=== PATIENT | male | born 1990 | race Caucasian/White ===

== ENCOUNTER 2017-08-10 03:20 | Emergency (ER) | payer BC ==
[~2017-08-10] VITALS: Ht 198.1 cm; Wt 141.7 kg
[~2017-08-10 03:20] MED LIST: LEVO5TAB2 PO
[2017-08-10 03:26] VITALS: TEMP 36.6; Ht 198.1 cm; Wt 141.7 kg
[2017-08-10] MEDS ORDERED: LORAZEPAM 1 MG TAB SL STA (04:13)
--- NOTE | 2017-08-10 04:20 | EMERGENCY ROOM VISIT NOTE ---
History Report prepared by Trixie: Tete Seay Under the Supervision of: Dr. Michelle Padilla D.O. First contact with patient: 03:37 Chief Complaint: ANXIETY Stated Complaint: COLD FEET History of Present Illness The patient is a 27 year old male who presents to the Emergency Room with complaints of an episode of an anxiety attack. The patient states "I thought i was gonna be okay but I'm not". 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 The patient states he felt "off" while he was at work. When the patient got home from work tonight, he states he smoked some marijuana. He states that after smoking weed he felt "wrong". Per roommates, the patient seemed confused and was not acting like himself when he got home from work. They report the patient was outside in only his socks and pajamas yelling and knocking on people's doors. The patient is aware that he was walking outside and states he was doing it because he thought it would make him feel "better" The patient states he feels "alone". The patient is unsure of any history of anxiety or depression. The patient's roommates state they haven't noticed any changes in the patient personality or attitude over the past couple weeks. The patient has a history of abusing drugs 5-6 years ago. Per roommates, the patient smoked this same marijuana before. The patient does not take prescription medications for anything. He notes sweats but denies any headache. He states he has been staying up late over the past week because . "it felt right" He denies any recent alcohol use or increased stress at work. Source of History: patient, other (roomates) Position: other (generalized) Quality: other (anxiety ) Associated Symptoms: + diaphoresis, No headache Review of Systems See HPI for pertinent positives & negatives. A total of 10 systems reviewed and were otherwise negative. Past Medical & Surgical Medical Problems: (1) Pollen allergies Family History Patient reports no known family medical history. Social History Smoking Status: Never Smoker Marital Status: single Occupation Status: employed Current/Historical Medications Scheduled PRN Levocetirizine Dihydrochloride (Xyzal), 5 MG PO DAILY PRN for Allergy Symptoms Allergies Coded Allergies: No Known Allergies (Unverified , 04/30/12) Physical Exam Vital Signs Date Time Temp Pulse Resp B/P (MAP) Pulse Ox O2 Delivery O2 Flow Rate FiO2 08/10/17 05:48 75 16 145/73 97 Room Air 08/10/17 03:47 58 08/10/17 03:26 36.6 78 20 157/107 100 Room Air Physical Exam General: Anxious, tachypneic, crying and hyperventilating HEENT: Head - normocephalic and atraumatic Pupils are equal, round, and reactive to light. Extraocular eye muscles are intact, and sclera are anicteric. Nose - moist nasal mucosa without discharge. Mouth - moist buccal mucosa. Oropharynx is nonerythematous and there is no tonsillar exudate or edema noted. Neck: Supple; no JVD, nuchal rigidity, cervical lymphadenopathy. Heart: Tachycardic. There is a normal S1 and S2 with no murmurs, clicks, or gallops appreciated. Lungs: Clear to auscultation bilaterally with no wheezes, rales, or rhonchi. Abdomen: Soft, completely nontender, nondistended, with good bowel sounds. There are no palpable pulsatile masses or hepatosplenomegaly. There is no guarding, rigidity, or rebound noted. Extremities: No evidence of cyanosis, clubbing, or edema. There are easily palpable peripheral pulses. Skin: Hot and diaphoretic with good turgor and no rashes. Psych: The patient is tearful and appears quite anxious on exam. He admits to possibly having some suicidal thoughts earlier this evening. Medical Decision & Procedures Laboratory Results 08/10/17 05:05 08/10/17 05:05 Test 08/10/17 03:34 08/10/17 05:05 08/10/17 05:11 Urine Color DK YELLOW Urine Appearance CLEAR (CLEAR) Urine pH 5.5 (4.5-7.5) Urine Specific [place] 1.028 (1.000-1.030) Urine Protein NEG (NEG) Urine Glucose (UA) NEG (NEG) Urine Ketones 1+ (NEG) Urine Occult Blood NEG (NEG) Urine Nitrite NEG (NEG) Urine Bilirubin NEG (NEG) Urine Urobilinogen NEG (NEG) Urine Leukocyte Esterase NEG (NEG) Urine Opiates Screen NEG (NEG) Urine Methadone, Qualitative NEG (NEG) Urine Barbiturates NEG (NEG) Urine Phencyclidine (PCP) Level NEG (NEG) Ur Amphetamine/Methamphetamine NEG (NEG) MDMA (Ecstasy) Screen NEG (NEG) Urine Benzodiazepines Screen NEG (NEG) Urine Cocaine Metabolite NEG (NEG) Urine Marijuana (THC) POS (NEG) Red Blood Count 4.97 M/uL (4.7-6.1) Mean Corpuscular Volume 85.1 fL (80-100) Mean Corpuscular Hemoglobin 30.6 pg (25-34) Mean Corpuscular Hemoglobin Concent 35.9 g/dl (32-36) RDW Standard Deviation 36.1 fL (36.4-46.3) RDW Coefficient of Variation 11.7 % (11.5-14.5) Mean Platelet Volume 9.5 fL (7.4-10.4) Anion Gap 6.0 mmol/L (3-11) Est Creatinine Clear Calc Drug Dose 160.6 ml/min Estimated GFR () 107.7 Estimated GFR (Non- 92.9 BUN/Creatinine Ratio 12.6 (10-20) Calcium Level 9.0 mg/dl (8.5-10.1) Total Bilirubin 1.0 mg/dl (0.2-1) Direct Bilirubin 0.2 mg/dl (0-0.2) Aspartate Amino Transf (AST/SGOT) 24 U/L (15-37) Alanine Aminotransferase (ALT/SGPT) 38 U/L (12-78) Alkaline Phosphatase 71 U/L (45-117) Total Protein 7.4 gm/dl (6.4-8.2) Albumin 4.1 gm/dl (3.4-5.0) Thyroid Stimulating Hormone (TSH) 2.560 uIu/ml (0.300-4.500) Salicylates Level < 1.7 mg/dl (2.8-20) Acetaminophen Level < 2 ug/ml (10-30) Ethyl Alcohol mg/dL < 3.0 mg/dl (0-3) Laboratory results per my review. Medications Administered Medications (Trade) Dose Ordered Sig/Dena Route Start Time Stop Time Status Last Admin Dose Admin Lorazepam (Ativan Tab) 2 mg NOW STAT SL 08/10/17 04:13 08/10/17 04:14 DC 08/10/17 04:19 2 MG Procedure Ativan SL. ED Course 0401: Past medical records reviewed. The patient was evaluated in room A12B. A complete history and physical exam was performed. 0413: Ordered Ativan Tab 2 mg SL. 0458: The patient reports the Ativan did not help him. I recommended having the patient talk to psychiatry. He admits to having thoughts of hurting himself earlier this evening. Laboratory studies were drawn to get him medically cleared. 0630: The patient was evaluate by staff from [facility]. He denied all suicidal ideation and states that he made those comments because he is sleep deprived and felt very anxious. He explained to me that he felt as if he were going to prior to coming to the emergency room. He had no intentions of harming himself. I given him information for follow-up with [facility] if necessary. Otherwise, he should follow-up with his PCP for referral to a therapist. Medical Decision The patient is a 27 year old male who presents to the ED with anxiety. Differential diagnosis includes marijuana intoxication, anxiety attack, panic, thought disorder. Lab results show: urinalysis 1+ ketones, tox screen positive for marijuana, aspirin and Tylenol levels are negative, normal TSH, glucose 101, normal LFTs, normal renal function, stable H and H, white count 11.1, alcohol is less than 3. This is 27-year-old male patient who presents to the emergency department with feelings of anxiety after smoking marijuana. He admits to being significantly sleep deprived. He went on to admit to possible suicidal thoughts earlier this evening. He was felt to be medically cleared and staff from [facility] will evaluate him. The patient was medically cleared and evaluated by staff at [facility]. He denied all suicidal ideation. He slept for a short period of time and felt much better. He was encouraged to avoid abusing marijuana. He was also encouraged to avoid sleep deprivation. He is off work today and plans to sleep throughout the day. He was given information for can help and encouraged follow-up with his PCP for referral for therapist if necessary. Medication Reconcilliation Current Medication List: was personally reviewed by me Blood Pressure Screening Patient's blood pressure: Elevated blood pressure Blood pressure disposition: Elevated BP felt to be situational Impression Primary Impression: Mood disorder Additional Impression: Marijuana abuse Scribe Attestation The scribe's documentation has been prepared under my direction and personally reviewed by me in its entirety. I confirm that the note above accurately reflects all work, treatment, procedures, and medical decision making performed by me. Departure Information Dispostion Still a Patient Referrals No Doctor, Assigned (PCP) Patient Instructions My [facility] Problem Qualifiers
[2017-08-10 05:19] LABS: HEMATOCRIT 42.3 % (42-52); HEMOGLOBIN 15.2 g/dL (14.0-18.0); MEAN CELL VOLUME 85.1 fL (80-100); MEAN CORPUSCULAR HEMOGLOBIN 30.6 pg (25-34); MEAN CORPUSCULAR HGB CONC 35.9 g/dl (32-36); MEAN PLATELET VOLUME 9.5 fL (7.4-10.4); PLATELET COUNT 272 K/uL (130-400); RED CELL DISTRIBUTION WIDTH CV 11.7 % (11.5-14.5); RED CELL DISTRIBUTION WIDTH SD 36.1 fL (36.4-46.3); WHITE BLOOD COUNT 11.18 K/uL (4.8-10.8)
[2017-08-10 05:36] LABS: ALBUMIN 4.1 gm/dl (3.4-5.0); CREATININE 1.08 mg/dl (0.60-1.40); POTASSIUM 4.1 mmol/L (3.5-5.1)
[2017-08-10 05:47] LABS: TOTAL PROTEIN 7.4 gm/dl (6.4-8.2)
[2017-08-10 06:59] VITALS: BP 138/105; PULSE 90; O2SAT 98
== END 2017-08-10 07:00 | disposition home or self-care (01) ==
LOC: C.EDB 03:23 → C.EDA 07:00
DX: F39 Unspecified mood [affective] disorder (principal); F12.10 Cannabis abuse, uncomplicated

== ENCOUNTER → 2017-09-03 | Outpatient (CLI) | payer BC ==
[2017-09-03 12:34] LABS: BLOOD UREA NITROGEN 10 mg/dl (7-18); CALCIUM 9.1 mg/dl (8.5-10.1); CARBON DIOXIDE 30 mmol/L (21-32); CREATININE 1.03 mg/dl (0.60-1.40); SODIUM 137 mmol/L (136-145)
== END | disposition home or self-care (01) ==
LOC: C.LAB 11:05
PROVIDERS: ATTEND Psychiatry & Neurology Psychiatry
DX: F41.0 Panic disorder [episodic paroxysmal anxiety] (principal)